=== PATIENT | female | born 1980 | race Hispanic/Latino ===

== ENCOUNTER 2023-07-10 01:32 | Emergency (ER) | payer OTHER ==
[~2023-07-10] VITALS: Ht 167.6 cm; Wt 110.7 kg
[2023-07-10] MEDS ORDERED: 0.9%NACL 1000ML 1,000 ML IV ONE (02:00)
[2023-07-10] MEDS ORDERED: ONDANSETRON 4MG INJ IVP ONE (02:00)
[2023-07-10 02:02] LABS: BASOPHILS # (AUTO) 0.06 K/uL (0.00-0.20); BASOPHILS % (AUTO) 0.5 % (0.0-5.0); EOSINOPHILS # (AUTO) 0.64 K/uL (0.00-0.70); EOSINOPHILS % (AUTO) 5.4 % (0.0-8.0); HEMATOCRIT 40.1 % (36-48); IMMATURE GRANULOCYTE ABSOLUTE 0.04 K/uL (0-1); LYMPHOCYTES # (AUTO) 3.2 K/uL (1.0-4.8); LYMPHOCYTES % (AUTO) 26.9 % (21.0-51.0); MEAN CORPUSCULAR HGB CONC 34.2 g/dL (32.0-36.0); MONOCYTES # (AUTO) 0.8 K/uL (0.1-1.0); MONOCYTES % (AUTO) 6.6 % (3.0-13.0); NEUTROPHILS # (AUTO) 7.2 K/uL (1.8-7.7); NEUTROPHILS % (AUTO) 60.3 % (40.0-77.0); PLATELET COUNT (AUTO) 305 K/uL (130-400); RED BLOOD CELL COUNT(AUTO) 4.72 MIL/uL (4.00-5.50); RED CELL DISTRIBUTION WIDTH 12.5 % (11.0-15.5); WHITE BLOOD COUNT (AUTO) 11.9 K/uL (4.8-10.8)
[2023-07-10 02:11] LABS: POTASSIUM 4.3 mmol/L (3.5-5.1)
[2023-07-10 02:13] LABS: INR < 0.93 (0.85-1.15); PROTHROMBIN TIME 10.4 SEC (9.6-11.6)
[2023-07-10 02:15] LABS: PARTIAL THROMBOPLASTIN TIME 23.5 SEC (26.3-35.5)
[2023-07-10 02:21] LABS: ALBUMIN 3.8 g/dL (3.5-5.0); BILIRUBIN,TOTAL 0.3 mg/dL (0.2-1.0); TOTAL PROTEIN, SERUM 8.9 g/dL (6.0-8.3)
[2023-07-10] MEDS ORDERED: HALOPERIDOL INJ 5 MG/ML VIAL ONE (02:27)
[2023-07-10] MEDS ORDERED: KETOROLAC 30MG VIAL (30MG/ML) IVP ONE (02:30)
[2023-07-10] MEDS ORDERED: KETOROLAC 30MG VIAL (30MG/ML) ONE (02:35)
[2023-07-10] MEDS ORDERED: HALOPERIDOL INJ 5 MG/ML VIAL IV SCH (03:00)
[2023-07-10] MEDS ORDERED: ONDA-104 PO (04:41)
[2023-07-10] MEDS ORDERED: IBUP-1493 PO (04:41)
[2023-07-10 04:42] VITALS: BP 120/68; PULSE 89; RESP 18; O2SAT 99
== END 2023-07-10 05:22 | disposition home or self-care (01) ==
LOC: EDH 01:32
DX: K80.20 Calculus of gallbladder without cholecystitis without obstruction (principal)
CPT/HCPCS: 99285; 96374; 76705; 71045; 96375; 96361; 84484; 80053; 84703; 83690; 85025; 85610; 85730; 36415; 93005; J7030; J1630; J2405; J1885